=== PATIENT | female | born 1980 | race Caucasian/White ===

== ENCOUNTER → 2016-09-15 | Outpatient (CLI) | payer OTHER ==
--- NOTE | 2016-09-15 12:41 | US ---
EXAMINATION TYPE: US transvaginal DATE OF EXAM: 09/15/2016 10:24 AM COMPARISON: NONE CLINICAL HISTORY: 35-year-old female with abnormal Bleeding N93.9. Patient states abnormal vaginal bl eeding x 3-4 months, patient also states part of right ovary removed many years ago Date of LMP: 09/01/2016 TECHNIQUE: Multiple transvaginal sonographic images of the pelvis are obtained. FINDINGS: Uterus: Anteverted measuring 8.7 x 4.1 x 5.3 cm Endometrial Stripe: There appear to be 2 endometrial horns. No discrete divot of the fundal contour by ultrasound. Endometrial stripe measures up to 9 mm thick. Right Ovary: 1.2 x 1.3 x 0.8 cm, very small with a few small follicles within compatible with histor y of previous partial resection. Left Ovary: 4.5 x 4.4 x 3.5 cm in largest secondary to a 4.1 cm simple cyst. No evident adnexal abnormality or cul-de-sac free fluid. IMPRESSION: 1. 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 If more definitive characterization is warranted, female pelvic MRI can be performed. 2. Diminutive right ovary compatible with history of previous partial resection. 3. Large 4.1 cm simple cyst within the left ovary. Consider follow-up in 6-8 weeks to ensure resoluti on.
== END | disposition home or self-care (01) ==
LOC: RADUSWWP 10:03
PROVIDERS: ATTEND Family Medicine
DX: N83.292 Other ovarian cyst, left side (principal)
CPT/HCPCS: 76830

== ENCOUNTER 2019-05-09 13:45 | Observation (INO) | payer OTHER ==
[2019-05-09] MEDS ORDERED: MORPHINE SULFATE 4 MG/ML SYRINGE IVP STA (14:28)
[2019-05-09] MEDS ORDERED: SODIUM CHLORIDE 0.9% 1,000 ML IV ONE ×2 (14:28→15:55)
--- NOTE | 2019-05-09 14:57 | ED ---
Abdominal Pain HPI - General Source: patient, EMS, RN notes reviewed, old records reviewed Mode of arrival: EMS Limitations: no limitations <Tiarra Morrisonily - Last Filed: 05/09/19 17:08> <Husam Townsend - Last Filed: 05/09/19 18:25> - General Chief Complaint: Abdominal Pain Stated Complaint: Abd pain Time Seen by Provider: 05/09/19 13:55 - History of Present Illness Initial Comments: 38-year-old female presented today for evaluation for transfer for [facility]. Patient was seen there for onset of left-sided abdominal pain and pelvic pain. Patient reports that he did have a positive hCG test there. P fabiano states that she's had previous ectopic pregnancies. She reports that her right ovary was removed when she was 13. She also reports she had an abdominal as well and this was taken care of by Dr. Borden. She states that she has had some vaginal bleeding and was in the past few hours. She is transferred here for an ultrasound. She reports that she's been having significant cramping pain. Her HCG at [facility] was 187. (Laurel Morrison) - Related Data Home Medications Medication Instructions Recorded Confirmed Dextroamphetamine/Amphetamine 30 mg PO BID 01/26/16 05/09/19 [Adderall] Fluticasone Propionate [Flonase 1 spray EA NOSTRIL BID 05/09/19 05/09/19 Allergy Relief] Allergies Allergy/AdvReac Type Severity Reaction Status Date / Time No Known Allergies Allergy Verified 05/09/19 18:13 Review of Systems ROS Other: All systems not noted in ROS Statement are negative. <Laurel Morrison - Last Filed: 05/09/19 17:08> ROS Other: All systems not noted in ROS Statement are negative. <Husam Townsend - Last Filed: 05/09/19 18:25> ROS Statement: Those systems with pertinent positive or pertinent negative responses have been documented in the HPI. Past Medical History Past Medical History: Asthma Additional Past Medical History / Comment(s): palpatations History of Any Multi-Drug Resistant Organisms: MRSA Date of last positivie culture/infection: 2012 MDRO Source:: leg Past Surgical History: Appendectomy Additional Past Surgical History / Comment(s): lumb left breast, ectopic removed - 2002 Past Anesthesia/Blood Transfusion Reactions: No Reported Reaction Past Psychological History: No Psychological Hx Reported Smoking Status: Current every day smoker Past Alcohol Use History: Occasional Past Drug Use History: None Reported - Past Family History Mother Family Medical History: Hypertension Father Family Medical History: Myocardial Infarction ([place]) Additional Family Medical History / Comment(s): [place] in 50's still living <Laurel Morrison - Last Filed: 05/09/19 17:08> General Exam Limitations: no limitations General appearance: alert, in no apparent distress Head exam: Present: atraumatic, normocephalic, normal inspection Eye exam: Present: normal appearance, PERRL, EOMI. Absent: scleral icterus, conjunctival injection, periorbital swelling ENT exam: Present: normal exam, mucous membranes moist Neck exam: Present: normal inspection. Absent: tenderness, meningismus, lymphadenopathy Respiratory exam: Present: normal lung sounds bilaterally. Absent: respiratory distress, wheezes, rales, rhonchi, stridor Cardiovascular Exam: Present: regular rate, normal rhythm, normal heart sounds. Absent: systolic murmur, diastolic murmur, rubs, gallop, clicks GI/Abdominal exam: Present: soft, tenderness (Left lower quadrant tenderness.), normal bowel sounds. Absent: distended, guarding, rebound, rigid External exam: Present: normal external exam Speculum exam: Present: normal speculum exam, vaginal bleeding (minor bleeding, Left adnexal tenderness). Absent: erythema, vaginal discharge, cervical discharge By manual exam: Present: normal by manual exam Extremities exam: Present: normal inspection, full ROM, normal capillary refill. Absent: tenderness, pedal edema, joint swelling, calf tenderness Back exam: Present: normal inspection Neurological exam: Present: alert, oriented X3, CN II-XII intact Psychiatric exam: Present: normal affect, normal mood Skin exam: Present: warm, dry, intact, normal color. Absent: rash <Laurel Morrison - Last Filed: 05/09/19 17:08> - General Exam Comments Initial Comments: 38-year-old female. Alert and oriented 3. Patient appears in moderate distress. (Laurel Morrison) Course <Husam Townsend - Last Filed: 05/09/19 18:25> Vital Signs 12/05/09/19 05/09/19 13:50 14:30 16:15 Temperature 97.7 F Pulse Rate 65 67 64 Respiratory 18 18 18 Rate Blood Pressure 146/110 155/71 162/88 O2 Sat by Pulse 95 98 100 Oximetry 05/09/19 17:00 Temperature Pulse Rate 64 Respiratory 18 Rate Blood Pressure 160/91 O2 Sat by Pulse 100 Oximetry - Reevaluation(s) Reevaluation #1: 05/09/19 17:14 Dr. Arevalo (OBGYN) was paged a couple of times from the ER, but he states that he did not receive any of these pages. Dr. Arevalo was eventually contacted by cell phone, and patient's case and test results were discussed with him. He states that he just left the hospital and he will turn around now and come back to the hospital. He has no further recommendations at this time. (Dr. Chen (OBGYN) was contacted while awaiting a callback from Dr. Arevalo, and she stated that given that the patient identified that her PAYLOADER OPERATOR doctor was Dr. Bolton, I should contact the physician on-call for his group.) 05/09/19 17:28 Dr. Arevalo contacted the ED special distribution clerk, stating that the patient has not seen Dr. Bolton in over 10 years, and he recommended contacting Dr. Chen for care of the patient today. 05/09/19 17:38 Case, H&P, test results, ED management and my discussion with Dr. Arevalo as above were discussed with Dr. Chen. She states that she will be in to the ED t o see the patient shortly. She has no further recommendations at this time. 05/09/19 18:17 Dr. Chen has seen the patient in the ED, and she states that she will be taking the patient to the O.R. for exploratory laparotomy. She has no further recommendations at this time. (Husam Townsend) Medical Decision Making - Lab Data Result diagrams: 05/09/19 14:35 05/09/19 14:35 - Radiology Data Radiology results: report reviewed <Laurel Morrison - Last Filed: 05/09/19 17:08> - Lab Data Result diagrams: 05/09/19 14:35 05/09/19 14:35 <Husam Townsend - Last Filed: 05/09/19 18:25> - Medical Decision Making Patient is a 38-year-old female, presents for his parents today with left pelvic pain. Transfer from [facility]. Patient on pelvic exam did have some discharge and bleeding noted. Left adnexal tenderness. Patient's hCG and her serum was 187 today at [facility]. She is Rh-. Was given RhoGAM injection. Patient was also found to be positive for Trichomonas on swab. Did inform the Patient of this. At this time are pending consult from PAYLOADER OPERATOR. Case Signed out to Dr. Townsend. (Laurel Morrison) Patient was endorsed to me by ED JESS Morrison after initial evaluation and work- up. Patient was seen and examined myself, and all test results were reviewed myself. Case was discussed with PAYLOADER OPERATOR Dr. Chen, and the decision was made to take the patient to the O.R. for exploratory laparotomy out of concern for suspected ectopic given the patient's exam and test results. (Husam Townsend) - Lab Data Lab Results 05/09/19 05/09/19 05/09/19 Range/Units 14:35 14:35 14:35 WBC 6.4 (3.8-10.6) k/uL RBC 3.97 (3.80-5.40) m/uL Hgb 12.8 (11.4-16.0) gm/dL Hct 36.8 (34.0-46.0) % MCV 92.6 (80.0-100.0) fL MCH 32.4 (25.0-35.0) pg MCHC 35.0 (31.0-37.0) g/dL RDW 13.1 (11.5-15.5) % Plt Count 204 (150-450) k/uL Neutrophils % 68 % Lymphocytes % 19 % Monocytes % 8 % Eosinophils % 4 % Basophils % 1 % Neutrophils # 4.3 (1.3-7.7) k/uL Lymphocytes # 1.2 (1.0-4.8) k/uL Monocytes # 0.5 (0-1.0) k/uL Eosinophils # 0.2 (0-0.7) k/uL Basophils # 0.0 (0-0.2) k/uL Sodium 139 (137-145) mmol/L Potassium 3.3 L (3.5-5.1) mmol/L Chloride 112 H (98-107) mmol/L Carbon Dioxide 19 L (22-30) mmol/L Anion Gap 8 mmol/L BUN 9 (7-17) mg/dL Creatinine 0.53 (0.52-1.04) mg/dL Est GFR (CKD-EPI)AfAm >90 (>60 ml/min/1.73 sqM) Est GFR (CKD-EPI)NonAf >90 (>60 ml/min/1.73 sqM) Glucose 78 (74-99) mg/dL Calcium 7.6 L (8.4-10.2) mg/dL Trichomonas Ag (Rapid) (Negative) Blood Type O Negative Blood Type Recheck O Neg Bld Type Recheck Status No Antibody Screen 05/09/19 05/09/19 Range/Units 14:35 16:16 WBC (3.8-10.6) k/uL RBC (3.80-5.40) m/uL Hgb (11.4-16.0) gm/dL Hct (34.0-46.0) % MCV (80.0-100.0) fL MCH (25.0-35.0) pg MCHC (31.0-37.0) g/dL RDW (11.5-15.5) % Plt Count (150-450) k/uL Neutrophils % % Lymphocytes % % Monocytes % % Eosinophils % % Basophils % % Neutrophils # (1.3-7.7) k/uL Lymphocytes # (1.0-4.8) k/uL Monocytes # (0-1.0) k/uL Eosinophils # (0-0.7) k/uL Basophils # (0-0.2) k/uL Sodium (137-145) mmol/L Potassium (3.5-5.1) mmol/L Chloride (98-107) mmol/L Carbon Dioxide (22-30) mmol/L Anion Gap mmol/L BUN (7-17) mg/dL Creatinine (0.52-1.04) mg/dL Est GFR (CKD-EPI)AfAm (>60 ml/min/1.73 sqM) Est GFR (CKD-EPI)NonAf (>60 ml/min/1.73 sqM) Glucose (74-99) mg/dL Calcium (8.4-10.2) mg/dL Trichomonas Ag (Rapid) Positive H (Negative) Blood Type Blood Type Recheck Bld Type Recheck Status Antibody Screen NEGATIVE - Radiology Data No visualized intrauterine . A 1.6 x 1.6 x 1.5 cm area of nodule soft tissue adjacent to the left ovary. Presence of elevated beta hCG in early ectopic remains to be excluded. Correlating with hCG value. No pelvic free fluid. (Laurel Morrison) Disposition <Laurel Morrison - Last Filed: 05/09/19 17:08> Is patient prescribed a controlled substance at d/c from ED?: No Time of Disposition: 18:17 <Husam Townsend - Last Filed: 05/09/19 18:25> Clinical Impression: , Abdominal pain, Vaginal trichomoniasis Narrative: Suspected ectopic (Husam Townsend) Disposition: ADMITTED IP TO THIS HOSP Condition: Stable Referrals: Justin Espinoza DO [Primary Care Provider] - 1-2 days
--- NOTE | 2019-05-09 15:27 | US ---
EXAMINATION TYPE: Ultrasound OB <= 14 week transvaginal DATE OF EXAM: 05/09/2019 3:10 PM COMPARISON: NONE CLINICAL HISTORY: 38-year-old female pelvic pain. Positive test, severe left sided pelvic p ain. EXAM PERFORMED: Transvaginal (TV) and Transabdominal (TA) FINDINGS: EXAM MEASUREMENTS: GESTATIONAL AGE / DATING Physician Established: Not yet established Dates by LMP: two weeks ago per patient Dates by First Scan: No previous, this is first scan Dates by Current Scan for: No IUP identified MATERNAL ANATOMY Uterus: 9.4 x 4.1 x 5.3 cm Right Ovary: 1.4 x 1.2 x 1.2 cm Left Ovary: 2.5 x 2.3 x 2.0 cm. However, see additional findings below. Post CDS / Adnexa: soft tissue density adjacent to left ovary measures 1.6 x 1.5 x 1.6 cm Presence of free fluid: none Presence of corpus luteal cyst: Hypoechoic lesion left ovary measures 1.1 x 1.2 x 1.1 cm could repres ent corpus luteal given peripheral vascularity. Presence of subchorionic bleed: none appreciated GESTATION / SURVEY Sales Order Processor notes: The uterus does not contain any sign of , the endo is not thickened. Date of LMP: two weeks ago per patient Beta HcG (if available): not available at time of exam. Patient states history of ectopic . There is a 1.6 x 1.6 x 1.5 cm nodular soft tissue density adjacent to left ovary. No associated incre ased vascularity here. No pelvic free fluid seen. IMPRESSION: 1. No visualized intrauterine . 2. A 1.6 x 1.6 x 1.5 cm area of nodular appearing soft tissue adjacent to the left ovary. In the pres ence of an elevated beta hCG, an early ectopic remains to be excluded. Correlate with beta hCG value. 3. No pelvic free fluid.
[2019-05-09 15:30] LABS: African American GFR (CKD) >90 (>60 ml/min/1.73 sqM); Anion Gap 8 mmol/L; Blood Urea Nitrogen 9 mg/dL (7-17); Calcium 7.6 mg/dL (8.4-10.2); Carbon Dioxide 19 mmol/L (22-30); Chloride 112 mmol/L (98-107); Glucose 78 mg/dL (74-99); Non-African American GFR(CKD) >90 (>60 ml/min/1.73 sqM); Potassium 3.3 mmol/L (3.5-5.1); Sodium 139 mmol/L (137-145)
[2019-05-09 15:34] LABS: Basophils % (A) 1 %; Eosinophils # (A) 0.2 k/uL (0-0.7); Eosinophils % (A) 4 %; HCT 36.8 % (34.0-46.0); HGB 12.8 gm/dL (11.4-16.0); Lymphocytes # (A) 1.2 k/uL (1.0-4.8); Lymphocytes % (A) 19 %; MCH 32.4 pg (25.0-35.0); MCV 92.6 fL (80.0-100.0); Mean Platelet Volume 8.1; Monocytes # (A) 0.5 k/uL (0-1.0); Monocytes % (A) 8 %; Neutrophils # (A) 4.3 k/uL (1.3-7.7); Neutrophils % (A) 68 %; Platelet Count 204 k/uL (150-450); RBC 3.97 m/uL (3.80-5.40); RDW 13.1 % (11.5-15.5); WBC 6.4 k/uL (3.8-10.6)
[2019-05-09] MEDS ORDERED: Rhogam IMMUNE GLOBULIN 1,500 UNIT/1 ML IM ONE (15:51)
[2019-05-09] MEDS ORDERED: MORPHINE SULFATE 2 MG/ML SYRINGE IVP ONE ×2 (15:55→16:43)
[2019-05-09] MEDS ORDERED: ONDANSETRON 4 MG/2 ML VIAL IVP STA (15:55)
[2019-05-09] MEDS ORDERED: HYDROmorphone 1 MG/ML 1 ML SYRINGE IVP STA (16:47)
[2019-05-09] MEDS ORDERED: NALOXONE 0.4 MG/ML 1 ML VIAL IV PRN (18:19)
[2019-05-09] MEDS ORDERED: SODIUM CHLORIDE 0.9% 1,000 ML IV SCH (18:30)
--- NOTE | 2019-05-09 18:32 | P.HPOB ---
History of Present Illness H&P Date: 05/09/19 Chief Complaint: Severe left lower quadrant pain This is a 38-year-old white female 4 para 10-1 last suture. Approximately 2 weeks ago who presented to [facility] at 10:00 this morning with severe left lower quadrant pain. This is accompanied by nausea, no vomiting. There has been scant vaginal bleeding over the past several days. Patient is known to be Rh- and has received a RhoGAM shot. Ultrasound examination reveals a 1.6 x 1.6 x 1.5 cm left adnexal mass, negative uterine cavity for gestational sac. No free fluid in the abdomen. Beta hCG 187. Patient states that despite pain medication, her pain as 10 out of 10. Past medical history is significant for degenerative disc disease and asthma. Past surgical history is significant for appendectomy along with partial right ovarian cystectomy and possible right partial nephrectomy as a teenager. In addition patient had an exploratory laparotomy for an abdominal at 3 months gestational age in 2011. Past obstetric history normal spontaneous vaginal delivery 2000, 6 lbs. 15 oz. female , uncomplicated. Social history patient is single, her significant other is at the bedside. She has been a tobacco smoker one pack per day for approximately 30 years. She admits to 2 alcoholic beverages weekly, denies drug or marijuana use. She is self-employed in the area of construction. Family history is essentially unremarkable. Current medications Flonase nasal spray as needed. ALLERGIES none known. On exam patient is 5 foot 5 inches, 140 pounds, blood pressure 160/91, pulse 64. She is in visible pain, in the position on the stretcher. Chest is clear in all mcmullen, cardiac exam reveals regular rate and rhythm with no murmur click or rub. Dentition is reasonably healthy and normal, no thyromegaly. Abdomen is softly distended with pain in the upper quadrant, rebound and guarding in the left lower quadrant. Diminished bowel sounds. No CVA tenderness. Extremities reveal no edema, good peripheral pulses. Pelvic examination is deferred to the operating room as the suspicion for ruptured ectopic is noted. Impression: Left ectopic , undesired fertility. Plan: We will proceed with exploratory laparotomy, possible left salpingo-oophorectomy, possible left salpingectomy, and right salpingectomy as well. All risks, benefits, and alternatives are discussed. Patient desires no further childbearing. She understands the risks of surgery to include but not exclusive of bleeding, infection, perforation or damage to surrounding organs including bowel, bladder, blood vessels, or indeed any pelvic organs. She has been nothing by mouth for 24 hours. Likely postoperative course is reviewed as well. All questions answered. Anesthesia and over staff en route. Review of Systems Constitutional: Reports as per HPI Past Medical History Past Medical History: Asthma Additional Past Medical History / Comment(s): palpatations History of Any Multi-Drug Resistant Organisms: MRSA Date of last positivie culture/infection: 2012 MDRO Source:: leg Past Surgical History: Appendectomy Additional Past Surgical History / Comment(s): lumb left breast, ectopic removed - 2002 Past Anesthesia/Blood Transfusion Reactions: No Reported Reaction Past Psychological History: No Psychological Hx Reported Smoking Status: Current every day smoker Past Alcohol Use History: Occasional Past Drug Use History: None Reported - Past Family History Mother Family Medical History: Hypertension Father Family Medical History: Myocardial Infarction ([place]) Additional Family Medical History / Comment(s): [place] in 50's still living Medications and Allergies Home Medications Medication Instructions Recorded Confirmed Type Dextroamphetamine/Amphetamine 30 mg PO BID 01/26/16 05/09/19 History [Adderall] Fluticasone Propionate [Flonase 1 spray EA NOSTRIL BID 05/09/19 05/09/19 History Allergy Relief] Allergies Allergy/AdvReac Type Severity Reaction Status Date / Time No Known Allergies Allergy Verified 05/09/19 18:13 Exam Vital Signs Temp Pulse Resp BP Pulse Ox 05/09/19 17:00 64 18 160/91 100 05/09/19 16:15 64 18 162/88 100 05/09/19 14:30 67 18 155/71 98 05/09/19 13:50 97.7 F 65 18 146/110 95 Intake and Output 05/09/19 05/09/19 05/09/19 06:59 14:59 22:59 Other: Weight 63.503 kg See dictation under HPI please Results Result Diagrams: 05/09/19 14:35 05/09/19 14:35 Abnormal Lab Results - Last 24 Hours (Table) 05/09/19 05/09/19 Range/Units 14:35 16:16 Potassium 3.3 L (3.5-5.1) mmol/L Chloride 112 H (98-107) mmol/L Carbon Dioxide 19 L (22-30) mmol/L Calcium 7.6 L (8.4-10.2) mg/dL Trichomonas Ag (Rapid) Positive H (Negative) Assessment and Plan Assessment: Left ectopic . Undesired fertility, with request for permanent sterilization as well. History of asthma and long-term tobacco smoking. Plan: We will proceed with exploratory laparotomy, left salpingectomy, possible left salpingo-oophorectomy, and right salpingectomy. All risks benefits and alternatives are discussed. All questions answered. Operating room staff and anesthesia en route. Time with Patient: Greater than 30
[2019-05-09] MEDS ORDERED: PROPOFOL 10 MG/ML 20 ML VIAL IV ONE (18:52)
[2019-05-09] MEDS ORDERED: NEOSTIGMINE 1 MG/ML 10 ML VIAL ONE (18:52)
[2019-05-09] MEDS ORDERED: LACTATED RINGERS 1,000 ML IV ONE ×2 (18:52→20:15)
[2019-05-09] MEDS ORDERED: DEXAMETHASONE SOD PHOS (MDV) 100 MG/10 ML VIAL ONE (18:52)
[2019-05-09] MEDS ORDERED: fentaNYL (PF) 50 MCG/ML 2 ML AMP ONE (18:52)
[2019-05-09] MEDS ORDERED: MIDAZOLAM 2 MG/2 ML VIAL ONE (18:52)
[2019-05-09] MEDS ORDERED: ROCURONIUM BROMIDE 10 MG/ML 10 ML VIAL IV ONE (18:52)
[2019-05-09] MEDS ORDERED: ONDANSETRON 4 MG/2 ML VIAL ONE (18:52)
[2019-05-09] MEDS ORDERED: LIDOCAINE 1% INJ 10MG/ML (20 ML MDV) ONE (18:52)
[2019-05-09] MEDS ORDERED: HYDROmorphone (PF) 1 MG/ML ONE (18:52)
[2019-05-09] MEDS ORDERED: SUCCINYLCHOLINE CHLORIDE 100 MG/5 ML SYR IV ONE (18:52)
[2019-05-09] MEDS ORDERED: GLYCOPYRROLATE 0.2 MG/ML 2 ML VIAL ONE (18:52)
[2019-05-09] MEDS ORDERED: KETOROLAC 30 MG/ML 1 ML VIAL ONE (18:52)
[2019-05-09] MEDS ORDERED: ceFAZolin 1,000 MG VIAL IVPB ONE (19:00)
[2019-05-09] MEDS ORDERED: SIMETHICONE 80 MG CHEWABLE PO PRN (19:46)
[2019-05-09] MEDS ORDERED: IBUPROFEN 600 MG TAB PO PRN (19:46)
[2019-05-09] MEDS ORDERED: ONDANSETRON 4 MG/2 ML VIAL IVP PRN (19:46)
[2019-05-09] MEDS ORDERED: METOCLOPRAMIDE 5 MG/ML 2 ML VIAL IVP PRN (19:46)
[2019-05-09] MEDS ORDERED: diphenhydrAMINE 50 MG/ML 1 ML VIAL IVP PRN (19:46)
--- NOTE | 2019-05-09 19:46 | P.OP ---
Date of Procedure: 05/09/19 Preoperative Diagnosis: Suspected ruptured left ectopic , undesired fertility Postoperative Diagnosis: Ruptured left isthmic , hemoperitoneum. Procedure(s) Performed: Exploratory laparotomy, bilateral salpingectomy, copious irrigation of the pelvis Anesthesia: CARROL Surgeon: Mary Chen Engine Monitor #1: Jeremy Arevalo Estimated Blood Loss (ml): 30 IV fluids (ml): 900 Urine output (ml): 250 Pathology: other (Bilateral fallopian tubes) Condition: stable Disposition: PACU Description of Procedure: Patient is brought to the operating suite where general anesthetic is administered without difficulty. She's placed in the dorsal supine position. The appropriate timeout is performed to assure proper patient and procedural identification. Antibiotics are given. Rodriguez placed to direct drainage. The abdomen is prepped and draped in usual sterile fashion. A low transverse incision is made over the top of a previous low transverse incision. This is carried down through the subcutaneous tissue to the fascia. Fascia is opened, extended bilaterally with curved Hodges scissors. Peritoneum is next identified and incised. Upon opening the peritoneal cavity bloody fluid is noted. This is suctioned easily. The left fallopian tube is brought into the incision with a Seminole clamp. There is a ruptured ectopic in the isthmic portion of the tube. A Sharon clamp was used across the entire tube beginning at the base, to include the fimbria, through the entire mesal salpinx, sparing the ovary. Hodges scissors are used to excise the tube and this was sent to pathology for ev aluation. 0 Vicryl sutures used 2 tie, flashed, and retied securely. Hemostasis is excellent. The ovary appears normal. Attention is now drawn to the right ovary and tube. The fimbria appeared so mewhat stunted, and per the patient's wishes the tube is mobilized and clamped across with a Sharon clamp. The ovary is spared. The tube is removed with Hodges scissors, 0 Vicryl sutures used to tie, flashed, and retied for excellent hemostasis. The pelvis is then generously irrigated with warm saline. Peritoneum was allowed to close by secondary intention. Fascia is closed in a running stitch of 0 Vicryl suture. Subcutaneous tissue is clean and dry. It is reapproximated with 3-0 Vicryl in a running manner. 4-0 undyed Vicryl is used in a subcuticular stitch for final skin closure. All sponge needle and enhancement counts are correct at the end of the procedure. Rodriguez is noted to be draining clear urine. Patient is brought back to the recovery room in stable condition with a blood pressure of 111/75, pulse 90. Toradol is given prior to leaving the operative suite.
[2019-05-09] MEDS: MIDAZOLAM 2 MG/2 ML VIAL IVP ONE ×2 (19:56→20:06)
[2019-05-09] MEDS: HYDROmorphone 1 MG/ML 1 ML SYRINGE IVP ONE ×2 (19:56→20:06)
[2019-05-09] MEDS: MORPHINE SULFATE 4 MG/ML SYRINGE IV PRN (21:55)
[2019-05-09 22:35] VITALS: RESP 18
[2019-05-09] MEDS: KETOROLAC 30 MG/ML 1 ML VIAL IVP PRN (23:04)
[2019-05-10] MEDS: MORPHINE SULFATE 4 MG/ML SYRINGE IV PRN ×2 (02:17→08:58)
[2019-05-10] MEDS: KETOROLAC 30 MG/ML 1 ML VIAL IVP PRN ×2 (05:15→11:58)
[2019-05-10 07:17] LABS: ALT 34 U/L (4-34); AST 38 U/L (14-36); African American GFR (CKD) >90 (>60 ml/min/1.73 sqM); Albumin 3.4 g/dL (3.5-5.0); Alkaline Phosphatase 61 U/L (38-126); Anion Gap 13 mmol/L; Blood Urea Nitrogen 5 mg/dL (7-17); Calcium 7.8 mg/dL (8.4-10.2); Carbon Dioxide 18 mmol/L (22-30); Chloride 105 mmol/L (98-107); Glucose 101 mg/dL (74-99); Non-African American GFR(CKD) >90 (>60 ml/min/1.73 sqM); Potassium 3.8 mmol/L (3.5-5.1); Sodium 136 mmol/L (137-145); Total Bilirubin 0.6 mg/dL (0.2-1.3); Total Protein 6.1 g/dL (6.3-8.2)
[2019-05-10 08:21] VITALS: TEMP 98.2
--- NOTE | 2019-05-10 08:42 | P.DS ---
Providers Date of admission: 05/09/19 18:20 Expected date of discharge: 05/10/19 Attending physician: Mary Chen Primary care physician: Justin Hern[facility]dez [facility] Course: This is a 38-year-old white female who presented from [facility] with severe abdominal pain and a positive beta hCG, along with a sonographic mass noted in the left adnexal region. The preliminary diagnosis of ruptured ectopic was given. Hemoglobin stable at 12.8. Vital signs stable. After discussion decision was made to proceed with laparotomy. Patient has had a previous abdominal , as well as a previous right ectopic . Herve vincent see my dictated history and physical for details. She was brought to the operating suite and a mini laparotomy was performed. The was indeed a ruptured ectopic in the left isthmic portion of the tube, left salpingectomy was performed. In addition, there was scarring of the right fallopian tube, status post ectopic on that side in the past. Per patient's wishes and expressed undesired fertility, the right fallopian tube was excised as well. Please see dictated operative note for details. Both ovaries appeared normal and were left in situ per patient's wishes. This morning the patient is doing well. She is ambulating, Rodriguez catheter has been removed, she is voiding. There is no vaginal bleeding noted. Her pain is reasonably well controlled. The incision is clean and dry, intact, Steri-Strips applied. Diet and activity are being advanced. Plan is for likely discharge home later today. I've reviewed with the patientNo intercourse, tampons or douching. No heavy lifting greater than a gallon of milk. No driving for two weeks. Call with any fever, shakes or chills, with any pain not alleviated by over the counter meds, or with any quesions or concerns., No intercourse, alternating Motrin 800 mg with Tylenol 1000 mg per schedule. No heavy lifting, no driving for 2 weeks. Follow-up with me in the office in 2 weeks. Call with any fevers shakes or chills, uncontrolled pain, with any issues or concerns. Patient Condition at Discharge: Good Plan - Discharge Summary Discharge Rx Participant: No New Discharge Prescriptions: No Action Dextroamphetamine/Amphetamine [Adderall] 30 mg PO BID Fluticasone Propionate [Flonase Allergy Relief] 1 spray EA NOSTRIL BID Discharge Medication List Dextroamphetamine/Amphetamine [Adderall] 30 mg PO BID 01/26/16 [History] Fluticasone Propionate [Flonase Allergy Relief] 1 spray EA NOSTRIL BID 05/09/19 [History] Follow up Appointment(s)/Referral(s): Justin Espinoza DO [Primary Care Provider] - 1-2 days () Mary Chen MD [STAFF PHYSICIAN] - 2 Weeks
[2019-05-10 09:21] LABS: Basophils % (A) 0 %; Eosinophils % (A) 0 %; HCT 37.1 % (34.0-46.0); HGB 12.6 gm/dL (11.4-16.0); Lymphocytes # (A) 0.9 k/uL (1.0-4.8); Lymphocytes % (A) 8 %; MCH 32.4 pg (25.0-35.0); MCV 95.2 fL (80.0-100.0); Mean Platelet Volume 8.6; Monocytes # (A) 0.4 k/uL (0-1.0); Monocytes % (A) 3 %; Neutrophils # (A) 10.3 k/uL (1.3-7.7); Neutrophils % (A) 88 %; WBC 11.7 k/uL (3.8-10.6)
[2019-05-10 09:34] LABS: Platelet Count 238 k/uL (150-450)
[2019-05-10 14:45] LABS: C. trachomatis,PCR Negative (Neg,Equiv); Chlamydia trachomatis Source Vagina
[2019-05-10 15:09] LABS: N. gonorrhoeae,PCR Negative (Neg,Equiv); Neisseria Source Vagina
[2019-05-10 15:23] VITALS: BP 118/79; PULSE 69
== END 2019-05-10 15:00 | disposition home or self-care (01) ==
LOC: EC 13:45 → 4FBP 18:20
PROVIDERS: ADMIT Obstetrics & Gynecology; ATTEND Obstetrics & Gynecology
DX: O00.102 Left tubal pregnancy without intrauterine pregnancy (principal); O98.319 Other infections with a predominantly sexual mode of transmission complicating pregnancy, unspecified trimester; A59.01 Trichomonal vulvovaginitis; O99.619 Diseases of the digestive system complicating pregnancy, unspecified trimester; K66.1 Hemoperitoneum; J45.909 Unspecified asthma, uncomplicated; M51.9 Unspecified thoracic, thoracolumbar and lumbosacral intervertebral disc disorder; O99.330 Smoking (tobacco) complicating pregnancy, unspecified trimester; F17.210 Nicotine dependence, cigarettes, uncomplicated; Z30.2 Encounter for sterilization; Z3A.00 Weeks of gestation of pregnancy not specified; Z87.59 Personal history of other complications of pregnancy, childbirth and the puerperium; Z79.899 Other long term (current) drug therapy; Z86.14 Personal history of Methicillin resistant Staphylococcus aureus infection; Z90.49 Acquired absence of other specified parts of digestive tract; Z98.890 Other specified postprocedural states; Z82.49 Family history of ischemic heart disease and other diseases of the circulatory system
CPT/HCPCS: 96376; 96361; 96372; 96374; 96375; 99285; 36415; 86900; 86901; 88305; 80053; 80048; 85025 ×2; 86850; 88302; 87808; 87491; 87591; 87070; 76801; 76817; 59120; 58700; G0378 ×2; J2791; J2250; J2270 ×3; J2710; J2405; J0690; J2001; J3010; J1885 ×2; J1170; J1100; J0330; J2704

== ENCOUNTER 2019-05-11 12:03 | Emergency (ER) | payer OTHER ==
[2019-05-11] MEDS ORDERED: MORPHINE SULFATE 4 MG/ML SYRINGE IV STA (13:19)
[2019-05-11] MEDS ORDERED: SODIUM CHLORIDE 0.9% 1,000 ML IV STA ×2 (13:19)
--- NOTE | 2019-05-11 13:28 | ED ---
Abdominal Pain HPI - General Source: patient Mode of arrival: ambulatory Limitations: no limitations <Alba Villa - Last Filed: 05/11/19 17:08> <Nicolas Stanford - Last Filed: 05/11/19 17:45> - General Chief Complaint: Abdominal Pain Stated Complaint: Bleeding/swelling-post op Time Seen by Provider: 05/11/19 13:16 - History of Present Illness Initial Comments: 38-year-old female presenting today for chief complaint of vaginal bleeding abdominal pain status post emergent open abdominal surgery for ruptured ectopic . Patient states on she did not know she is and had a ruptured ectopic at [facility] where she was transported to [facility] for emergency surgery. She states she had Dr. Chen. She states she had her left and right salpingectomy as patient has had a previous right-sided oophorectomy. Patient states that she was sent home on the she states she had no bleeding at the time minimal pain she states that tonight she knows she woke up with bleeding and had significant abdominal pain described as burning severe pain in the abdomen. Patient states she describes the bleeding is mild to moderate she states she is nauseated and having hot and cold flashes. Patient states she was told that if she had any vaginal bleeding to return to the emergency department. Patient was not prescribed any narcotics upon discharge only instructed to take Tylenol and ibuprofen. Remaining review of systems negative upon arrival patient appears uncomfortable blood pressure elevated. (Alba Villa) - Related Data Home Medications Medication Instructions Recorded Confirmed Dextroamphetamine/Amphetamine 30 mg PO BID 01/26/16 05/09/19 [Adderall] Fluticasone Propionate [Flonase 1 spray EA NOSTRIL BID 05/09/19 05/09/19 Allergy Relief] Previous Rx's Medication Instructions Recorded Ferrous Sulfate [Feosol] 325 mg PO DAILY 7 Days #7 tab 05/11/19 HYDROcodone/APAP 7.5-325MG [[place] 1 tab PO Q4H PRN 3 Days #18 tab 05/11/19 7.5-325] Allergies Allergy/AdvReac Type Severity Reaction Status Date / Time No Known Allergies Allergy Verified 05/11/19 12:16 Review of Systems ROS Other: All systems not noted in ROS Statement are negative. <Alba Villa - Last Filed: 05/11/19 17:08> ROS Other: All systems not noted in ROS Statement are negative. <Nicolas Stanford - Last Filed: 05/11/19 17:45> ROS Statement: Those systems with pertinent positive or pertinent negative responses have been documented in the HPI. Past Medical History Past Medical History: Asthma Additional Past Medical History / Comment(s): palpatations History of Any Multi-Drug Resistant Organisms: MRSA Date of last positivie culture/infection: 2012 MDRO Source:: leg Past Surgical History: Appendectomy Additional Past Surgical History / Comment(s): lumb left breast, ectopic removed - 2002 Past Anesthesia/Blood Transfusion Reactions: No Reported Reaction Past Psychological History: No Psychological Hx Reported Smoking Status: Current every day smoker Past Alcohol Use History: Occasional Past Drug Use History: None Reported - Past Family History Mother Family Medical History: Hypertension Father Family Medical History: No Reported History, Myocardial Infarction ([place]) Additional Family Medical History / Comment(s): [place] in 50's still living <Alba Villa - Last Filed: 05/11/19 17:08> General Exam Limitations: no limitations <Alba Villa - Last Filed: 05/11/19 17:08> - General Exam Comments Initial Comments: General: The patient is awake and alert, appears uncomfortable. Eye: +3 mm pupils are equal, round and reactive to light, extra-ocular movements are intact. No nystagmus. There is normal conjunctiva bilaterally. No signs of icterus. Ears, nose, mouth and throat: There are moist mucous membranes and no oral lesions. Neck: The neck is supple, there is no tenderness or JVD. Cardiovascular: There is a regular rate and rhythm. No murmur, rub or gallop is appreciated. Respiratory: Lungs are clear to auscultation, respirations are non-labored, breath sounds are equal. No wheezes, stridor, rales, or rhonchi. Gastrointestinal: Soft, non-distended, diffusely tender abdomen without masses or organomegaly noted. There is no rebound or guarding present. Incision horizontal on the abdomen wound dehiscence. Serosanguineous dried drainage no active. No surrounding redness. Pelvic exam: reveal os closed, mild-mod amount of dark blood in vault, adnexal tenderness Musculoskeletal: Normal ROM, no tenderness. Strength 5/5. Sensation intact. Radial pulses equal bilaterally 2+. Neurological: A&O x 3. CN II-XII intact grossly, There are no obvious motor or sensory deficits. Coordination appears grossly intact. Speech is normal. Skin: Skin is warm and dry and no rashes or lesions are noted. Psychiatric: Cooperative, appropriate mood & affect, normal judgment. (Alba Villa) Course Vital Signs 05/11/19 05/11/19 05/11/19 12:14 13:36 15:39 Temperature 98.0 F Pulse Rate 82 55 L Respiratory 18 18 Rate Blood Pressure 147/103 137/104 146/115 O2 Sat by Pulse 100 99 Oximetry 05/11/19 05/11/19 16:55 17:13 Temperature 98.3 F Pulse Rate 61 Respiratory 16 Rate Blood Pressure 131/95 O2 Sat by Pulse 99 Oximetry Medical Decision Making - Lab Data Result diagrams: 05/11/19 13:01 05/11/19 13:01 <Alba Villa - Last Filed: 05/11/19 17:08> - Lab Data Result diagrams: 05/11/19 13:01 05/11/19 13:01 <Nicolas Stanford - Last Filed: 05/11/19 17:45> - Medical Decision Making 38-year-old female presenting for postoperative pain. CT of the abdomen revealed a hematoma symptom free fluid in the posterior cul-de-sac patient had recent salpingectomy performed by Dr. Chen she was consulted by my attending provider who reviewed imaging studies his left also laboratory studies and physical appearance as Dr. Stanford abnormalities patient in person. She recommended discharge home with pain medication as patient is not prescribe these upon discharge. She will follow-up with patient in office. He should continue to have pain in the emergency department at 5:00 patient began to decrease the pain she was offered admission however refused to ensure that to try to go home with pain medication. Patient was given very strict return parameters for any increasing or changes in the pain patient verbalized understanding and was discharged appearing well. Dr. stanford agreeable to care plan and discharge at this time. (Alba Villa) 38-year-old female presenting with postoperative abdominal pain after expiratory laparotomy and bilateral salpingectomy. Patient is 2 days postop. She had been discharged in stable condition yesterday she had increasing abdominal pain at home and developed some vaginal bleeding. She has scant blood on pelvic exam. Abdomen mildly distended. No rebound or guarding. CT was performed, shows a hematoma 5 cm x 3 centimeters adjacent to the bladder, there is no active extravasation in this hematoma. There is a mild amount of free fluid in the pelvis as well. Hemoglobin stable at 12.5 from 12.6. Will discuss this case with patient's surgeon Dr. Chen, including CT findings and exam. [place] that patient was stable for discharge with increased pain medication. She was prescribed ferrous sulfate as well. She was initially planned for 2 weeks postoperative evaluation in the office. Plan for outpatient follow-up within next several days to 1 week. Patient is offered observation for continued pain management versus discharge home, she prefers discharge home. Her pain is controlled in the emergency department. (Nicolas Stanford) - Lab Data Lab Results 05/11/19 05/11/19 05/11/19 Range/Units 13:01 13:01 13:05 WBC 9.3 (3.8-10.6) k/uL RBC 4.02 (3.80-5.40) m/uL Hgb 12.5 (11.4-16.0) gm/dL Hct 37.3 (34.0-46.0) % MCV 92.7 (80.0-100.0) fL MCH 31.1 (25.0-35.0) pg MCHC 33.5 (31.0-37.0) g/dL RDW 13.0 (11.5-15.5) % Plt Count (150-450) k/uL Neutrophils % 80 % Lymphocytes % 15 % Monocytes % 4 % Eosinophils % 1 % Basophils % 0 % Neutrophils # 7.4 (1.3-7.7) k/uL Lymphocytes # 1.4 (1.0-4.8) k/uL Monocytes # 0.3 (0-1.0) k/uL Eosinophils # 0.1 (0-0.7) k/uL Basophils # 0.0 (0-0.2) k/uL Manual Slide Review Performed RBC Morphology Normal PT (9.0-12.0) sec INR (<1.2) APTT (22.0-30.0) sec Sodium 138 (137-145) mmol/L Potassium 3.5 (3.5-5.1) mmol/L Chloride 105 (98-107) mmol/L Carbon Dioxide 27 (22-30) mmol/L Anion Gap 6 mmol/L BUN 9 (7-17) mg/dL Creatinine 0.61 (0.52-1.04) mg/dL Est GFR (CKD-EPI)AfAm >90 (>60 ml/min/1.73 sqM) Est GFR (CKD-EPI)NonAf >90 (>60 ml/min/1.73 sqM) Glucose 94 (74-99) mg/dL Calcium 8.8 (8.4-10.2) mg/dL Total Bilirubin 0.7 (0.2-1.3) mg/dL AST 55 H (14-36) U/L ALT 48 H (4-34) U/L Alkaline Phosphatase 74 (38-126) U/L Total Protein 6.6 (6.3-8.2) g/dL Albumin 3.7 (3.5-5.0) g/dL HCG, Quant 46.5 mIU/mL Urine Color Urine Appearance (Clear) Urine pH (5.0-8.0) Ur Specific [place] (1.001-1.035) Urine Protein (Negative) Urine Glucose (UA) (Negative) Urine Ketones (Negative) Urine Blood (Negative) Urine Nitrite (Negative) Urine Bilirubin (Negative) Urine Urobilinogen (<2.0) mg/dL Ur Leukocyte Esterase (Negative) Urine RBC (0-5) /hpf Urine WBC (0-5) /hpf Ur Squamous Epith Cells (0-4) /hpf Urine Mucus (None) /hpf Blood Type O Negative Blood Type Recheck O Neg Bld Type Recheck Status No Antibody Screen POSITIVE Antibody Identification Anti-D Direct Antiglob Test Negative Spec Expiration Date 05/14/2019 - 230405/11/19 05/11/19 Range/Units 13:05 13:45 WBC (3.8-10.6) k/uL RBC (3.80-5.40) m/uL Hgb (11.4-16.0) gm/dL Hct (34.0-46.0) % MCV (80.0-100.0) fL MCH (25.0-35.0) pg MCHC (31.0-37.0) g/dL RDW (11.5-15.5) % Plt Count (150-450) k/uL Neutrophils % % Lymphocytes % % Monocytes % % Eosinophils % % Basophils % % Neutrophils # (1.3-7.7) k/uL Lymphocytes # (1.0-4.8) k/uL Monocytes # (0-1.0) k/uL Eosinophils # (0-0.7) k/uL Basophils # (0-0.2) k/uL Manual Slide Review RBC Morphology PT 9.4 (9.0-12.0) sec INR 0.9 (<1.2) APTT 23.4 (22.0-30.0) sec Sodium (137-145) mmol/L Potassium (3.5-5.1) mmol/L Chloride (98-107) mmol/L Carbon Dioxide (22-30) mmol/L Anion Gap mmol/L BUN (7-17) mg/dL Creatinine (0.52-1.04) mg/dL Est GFR (CKD-EPI)AfAm (>60 ml/min/1.73 sqM) Est GFR (CKD-EPI)NonAf (>60 ml/min/1.73 sqM) Glucose (74-99) mg/dL Calcium (8.4-10.2) mg/dL Total Bilirubin (0.2-1.3) mg/dL AST (14-36) U/L ALT (4-34) U/L Alkaline Phosphatase (38-126) U/L Total Protein (6.3-8.2) g/dL Albumin (3.5-5.0) g/dL HCG, Quant mIU/mL Urine Color Light Yellow Urine Appearance Clear (Clear) Urine pH 7.5 (5.0-8.0) Ur Specific [place] 1.006 (1.001-1.035) Urine Protein Negative (Negative) Urine Glucose (UA) Negative (Negative) Urine Ketones Negative (Negative) Urine Blood Small H (Negative) Urine Nitrite Negative (Negative) Urine Bilirubin Negative (Negative) Urine Urobilinogen <2.0 (<2.0) mg/dL Ur Leukocyte Esterase Small H (Negative) Urine RBC 1 (0-5) /hpf Urine WBC 3 (0-5) /hpf Ur Squamous Epith Cells <1 (0-4) /hpf Urine Mucus Rare H (None) /hpf Blood Type Blood Type Recheck Bld Type Recheck Status Antibody Screen Antibody Identification Direct Antiglob Test Spec Expiration Date Disposition Is patient prescribed a controlled substance at d/c from ED?: Yes When asked, does pt state using other controlled substances?: No If prescribed controlled substance>3 days was MAPS reviewed?: Prescribed <3 Days If opioid is for acute pain is fill amount 7 days or less?: Yes If Rx opioid, was Start Talking consent form obtained?: Yes Time of Disposition: 17:01 <Alba Villa - Last Filed: 05/11/19 17:08> <Nicolas Stanford - Last Filed: 05/11/19 17:45> Clinical Impression: Post-operative pain, Intra-abdominal hematoma Disposition: HOME SELF-CARE Condition: Good Instructions (If sedation given, give patient instructions): Salpingectomy (DC) Prescriptions: Ferrous Sulfate [Feosol] 325 mg PO DAILY 7 Days #7 tab HYDROcodone/APAP 7.5-325MG [[place] 7.5-325] 1 tab PO Q4H PRN 3 Days #18 tab PRN Reason: Pain Referrals: Justin Espinoza DO [Primary Care Provider] - 1-2 days Mary Chen MD [STAFF PHYSICIAN] - 1-2 days
[2019-05-11] MEDS ORDERED: ONDANSETRON 4 MG/2 ML VIAL IVP STA (13:31)
[2019-05-11 13:48] LABS: INR 0.9 (<1.2); Partial Thromboplastin Time 23.4 sec (22.0-30.0); Prothrombin Time 9.4 sec (9.0-12.0)
[2019-05-11 13:49] LABS: ALT 48 U/L (4-34); AST 55 U/L (14-36); African American GFR (CKD) >90 (>60 ml/min/1.73 sqM); Albumin 3.7 g/dL (3.5-5.0); Alkaline Phosphatase 74 U/L (38-126); Anion Gap 6 mmol/L; Blood Urea Nitrogen 9 mg/dL (7-17); Calcium 8.8 mg/dL (8.4-10.2); Carbon Dioxide 27 mmol/L (22-30); Chloride 105 mmol/L (98-107); Glucose 94 mg/dL (74-99); Non-African American GFR(CKD) >90 (>60 ml/min/1.73 sqM); Potassium 3.5 mmol/L (3.5-5.1); Sodium 138 mmol/L (137-145); Total Bilirubin 0.7 mg/dL (0.2-1.3); Total Protein 6.6 g/dL (6.3-8.2)
[2019-05-11 13:53] LABS: Basophils % (A) 0 %; Eosinophils # (A) 0.1 k/uL (0-0.7); Eosinophils % (A) 1 %; HCT 37.3 % (34.0-46.0); HGB 12.5 gm/dL (11.4-16.0); Lymphocytes # (A) 1.4 k/uL (1.0-4.8); Lymphocytes % (A) 15 %; MCH 31.1 pg (25.0-35.0); MCHC 33.5 g/dL (31.0-37.0); MCV 92.7 fL (80.0-100.0); Mean Platelet Volume 9.1; Monocytes # (A) 0.3 k/uL (0-1.0); Monocytes % (A) 4 %; Neutrophils # (A) 7.4 k/uL (1.3-7.7); Neutrophils % (A) 80 %; RBC 4.02 m/uL (3.80-5.40); WBC 9.3 k/uL (3.8-10.6)
[2019-05-11 14:03] LABS: Appearance,Urine Clear (Clear); Bilirubin,Urine Negative (Negative); Blood,Urine Small (Negative); Color,Urine Light Yellow; Glucose,Urine (UA) Negative (Negative); Ketones,Urine Negative (Negative); Leukocyte Esterase,Urine Small (Negative); Mucus,Urine Rare /hpf; Nitrite,Urine Negative (Negative); PH, Urine 7.5 (5.0-8.0); Protein,Urine Negative (Negative); RBC,Urine 1 /hpf (0-5); Specific Gravity,Urine 1.006 (1.001-1.035); Squamous Epithelial Cell,Urine <1 /hpf (0-4); Urobilinogen,Urine <2.0 mg/dL (<2.0); WBC,Urine 3 /hpf (0-5)
[2019-05-11 14:06] LABS: HCG,Quantitative Serum 46.5 mIU/mL
--- NOTE | 2019-05-11 14:31 | CT ---
EXAMINATION TYPE: CT abdomen pelvis w con DATE OF EXAM: 05/11/2019 COMPARISON: None HISTORY: vaginal bleeding, pain, post ectopic tube removal CT DLP: 867.6 mGycm CONTRAST: CT scan of the abdomen and pelvis is performed without Oral Contrast and with IV Contrast, patient in jected with 100 mL of Isovue 300. FINDINGS: LUNG BASES-: No visible nodule. No infiltrate. LIVER/GB: No calcified gallstones. No space occupying hepatic lesion. Biliary tree is of normal ca liber. PANCREAS: No inflammation. No distinct mass. SPLEEN: No splenic enlargement. No lesion seen. ADRENALS: No nodule. No thickening. KIDNEYS/BLADDER: No hydronephrosis. No nephrolithiasis. No distinct renal mass. Urinary bladder g rossly unremarkable. BOWEL: Normal appendix. Distended small bowel felt to reflect ileus. No inflammation. GENITAL ORGANS: Uterus and ovaries are free of mass lesion or abnormal collection. Free fluid seen w ithin the cul-de-sac measuring 3.7 x 2.3 cm. LYMPH NODES: No greater than 1cm abdominal or pelvic lymph nodes are appreciated. AORTA: No significant abnormality. OSSEOUS STRUCTURES: No significant abnormality is seen. OTHER: There is hematoma noted anterior laterally and to the right of the urinary bladder measuring 5.2 x 2.2 cm. Anterior subcutaneous and intramuscular foci of air noted from recent abdominal surgery . IMPRESSION: 1. Postoperative changes of the anterior abdominal wall with multiple foci of air noted. 2. Hematoma noted anterolaterally and to the right of the urinary bladder measuring 5.2 x 2.2 cm. 3. No uterine or ovarian mass lesion identified or collection noted. Free fluid within the cul-de-sac . 4. Small bowel ileus.
[2019-05-11] MEDS ORDERED: MORPHINE SULFATE 4 MG/ML SYRINGE IVP STA (14:54)
[2019-05-11] MEDS ORDERED: HYDROmorphone 0.5 MG/0.5 ML SYRINGE IVP STA (15:46)
[2019-05-11 16:55] VITALS: BP 131/95
[2019-05-11 17:14] VITALS: PULSE 61; RESP 16; TEMP 98.3
== END 2019-05-11 17:19 | disposition home or self-care (01) ==
LOC: EC 12:03
DX: K91.871 Postprocedural hematoma of a digestive system organ or structure following other procedure (principal); G89.18 Other acute postprocedural pain; T81.31XA Disruption of external operation (surgical) wound, not elsewhere classified, initial encounter; J45.909 Unspecified asthma, uncomplicated; F17.200 Nicotine dependence, unspecified, uncomplicated; Z79.51 Long term (current) use of inhaled steroids; Z79.899 Other long term (current) drug therapy; Z86.14 Personal history of Methicillin resistant Staphylococcus aureus infection; Z90.49 Acquired absence of other specified parts of digestive tract; Z90.79 Acquired absence of other genital organ(s); Z53.20 Procedure and treatment not carried out because of patient's decision for unspecified reasons
CPT/HCPCS: 36415; 86900; 86901; 80053; 85025; 85610; 85730; 86850; 86870; 86880; 81001; 84702; 74177; 99284; 96374; 96375 ×2; 96376; 96361 ×4; J2270; J2405; J1170; Q9967

== ENCOUNTER 2023-02-21 11:05 | Emergency (ER) | payer OTHER ==
[2023-02-21] MEDS ORDERED: SODIUM CHLORIDE 0.9% 1,000 ML IV STA (12:04)
[2023-02-21] MEDS ORDERED: KETOROLAC 15 MG/ML 1 ML VIAL IVP STA (12:04)
--- NOTE | 2023-02-21 12:11 | ED ---
ENT HPI - General Chief complaint: Dental/Oral Stated complaint: Dental Pain Time Seen by Provider: 02/21/23 11:33 Source: patient Mode of arrival: ambulatory Limitations: no limitations - History of Present Illness Initial comments: A 42-year-old female with no significant past medical history presented to the ED with a chief complaint of chest pain. Patient notes that she is due for dental extraction of left lower molar. States that she saw her dentist a few days ago due to cavity and was prescribed amoxicillin 500 mg 3 times a day on 02/17/23. Patient reports over the past 2-3 days has developed left lower chest pain that is worse on deep breath, movement, and touching. Reports due to this states that she feels somewhat short of breath. So notes over the past few days has felt fatigued, subjective fevers and chills. Due to this she called her dentist who advised her to present to the ED for further evaluation. Denies abdominal pain. Denies urinary symptoms. No changes in bowel or bladder habits. She reports chronic cough due to history of smoking. No other complaints. - Related Data Home Medications Medication Instructions Recorded Confirmed Dextroamphetamine/Amphetamine 30 mg PO BID 01/26/16 05/09/19 [Adderall] Fluticasone Propionate [Flonase 1 spray EA NOSTRIL BID 05/09/19 05/09/19 Allergy Relief] Previous Rx's Medication Instructions Recorded Ferrous Sulfate [Feosol] 325 mg PO DAILY 7 Days #7 tab 05/11/19 HYDROcodone/APAP 7.5-325MG [[place] 1 tab PO Q4H PRN 3 Days #18 tab 05/11/19 7.5-325] Allergies Allergy/AdvReac Type Severity Reaction Status Date / Time No Known Allergies Allergy Verified 02/21/23 11:32 Review of Systems ROS Statement: Those systems with pertinent positive or pertinent negative responses have been documented in the HPI. ROS Other: All systems not noted in ROS Statement are negative. Past Medical History Past Medical History: Asthma Additional Past Medical History / Comment(s): palpatations History of Any Multi-Drug Resistant Organisms: MRSA Date of last positivie culture/infection: 2012 MDRO Source:: leg Past Surgical History: Appendectomy Additional Past Surgical History / Comment(s): lumb left breast, ectopic removed - 2002 Past Anesthesia/Blood Transfusion Reactions: No Reported Reaction Past Psychological History: No Psychological Hx Reported Smoking Status: Current every day smoker Past Alcohol Use History: None Reported Past Drug Use History: None Reported - Past Family History Mother Family Medical History: Hypertension Father Family Medical History: No Reported History, Myocardial Infarction ([place]) Additional Family Medical History / Comment(s): [place] in 50's still living General Exam Limitations: no limitations General appearance: alert, in no apparent distress Eye exam: Present: normal appearance ENT exam: Present: mucous membranes moist Neck exam: Present: normal inspection Respiratory exam: Present: normal lung sounds bilaterally Cardiovascular Exam: Present: regular rate, normal rhythm, other (No murmurs rubs or gallops.) GI/Abdominal exam: Present: soft Extremities exam: Present: other (No Janeway lesions or Osler nodes.) Neurological exam: Present: alert, oriented X3 Skin exam: Present: warm, dry Course Vital Signs 02/21/23 11:27 Temperature 98.2 F Pulse Rate 91 Respiratory 18 Rate Blood Pressure 95/61 O2 Sat by Pulse 100 Oximetry Medical Decision Making - Medical Decision Making Was pt. sent in by a medical professional or institution (, PA, MEDICAL ASSISTANT, urgent care, hospital, or retirement...) When possible be specific @ -No Did you speak to anyone other than the patient for history (EMS, parent, family, police, friend...)? What history was obtained from this source @ -No Did you review nursing and triage notes (agree or disagree)? Why? @ -I reviewed and agree with nursing and triage notes Were old charts reviewed (outside hosp., previous admission, EMS record, old EKG, old radiological studies, urgent care reports/EKG's, retirement records)? Report findings @ -No old charts were reviewed Differential Diagnosis (chest pain, altered mental status, abdominal pain women, abdominal pain men, vaginal bleeding, weakness, fever, dyspnea, syncope, headache, dizziness, GI bleed, back pain, seizure, CVA, palpatations, mental health, musculoskeletal)? @ -Differential Chest Pain: Stable Angina, Unstable Angina, STEMI, NSTEMI Aortic Dissection, Pneumothorax, Musculoskeletal, Esophageal Spasm GERD, Cholecystitis, Pancreatitis, Zoster, this is not meant to be an all-inclusive list. EKG interpreted by me (3pts min.). @ -As above X-rays interpreted by me (1pt min.). @ -Chest x-ray interpreted by me showed no acute process. CT interpreted by me (1pt min.). @ -None done U/S interpreted by me (1pt. min.). @ -None done What testing was considered but not performed or refused? (CT, X-rays, U/S, labs)? Why? @ -None What meds were considered but not given or refused? Why? @ -None Did you discuss the management of the patient with other professionals (prof godoy i.e. , PA, MEDICAL ASSISTANT, lab, RT, psych nurse, social sciences professor, neurourologist, teacher, accounts officer, case manager specialist)? Give summary @ -No Was smoking cessation discussed for >3mins.? @ -No Was critical care preformed (if so, how long)? @ -No Were there social determinants of health that impacted care today? How? (Homelessness, low income, unemployed, alcoholism, drug addiction, transportat ion, low edu. Level, literacy, decrease access to med. care, fci, rehab)? @ -No Was there de-escalation of care discussed even if they declined (Discuss DNR or withdrawal of care, Hospice)? DNR status @ -No What co-morbidities impacted this encounter? (DM, HTN, Smoking, COPD, CAD, Cancer, CVA, ARF, Chemo, Hep., AIDS, mental health diagnosis, sleep apnea, morbid obesity)? @ -None Was patient admitted / discharged? Hospital course, mention meds given and route, prescriptions, significant lab abnormalities, going to OR and other pertinent info. @ -Discharge 42-year-old female presented to the ED with concerns of chest pain and shortness of breath. Laboratory studies including CBC, chemistry panel, d-dimer, troponin, UA unremarkable. Pain is reproducible on exam with reproductive left lower chest wall tenderness to palpation. Patient had significant improvement of symptoms with Toradol here in the ED. Patient discharged home in stable condition. Discussed return precautions with patient and family who verbalizes agreement. Undiagnosed new problem with uncertain prognosis? @ -No Drug Therapy requiring intensive monitoring for toxicity (Heparin, Nitro, Insulin, Cardizem)? @ -No Were any procedures done? @ -No Diagnosis/symptom? @ -Chest pain Acute, or Chronic, or Acute on Chronic? @ -Acute Uncomplicated (without systemic symptoms) or Complicated (systemic symptoms)? @ -Uncomplicated Side effects of treatment? @ -No Exacerbation, Progression, or Severe Exacerbation? @ -No Poses a threat to life or bodily function? How? (Chest pain, [place], AR, pneumonia, PE, COPD, DKA, ARF, appy, cholecystitis, CVA, Diverticulitis, Homicidal, Suicidal, threat to staff... and all critical care pts) @ -No - Lab Data Result diagrams: 02/21/23 12:02/21/23 12: Lab Results 02/21/23 02/21/23 02/21/23 Range/Units 12: 12:07 05: WBC 8.3 (3.8-10.6) k/uL RBC 5.05 (3.80-5.40) m/uL Hgb 15.2 (11.4-16.0) gm/dL Hct 45.5 (34.0-46.0) % MCV 90.2 (80.0-100.0) fL MCH 30.0 (25.0-35.0) pg MCHC 33.3 (31.0-37.0) g/dL RDW 12.5 (11.5-15.5) % Plt Count 235 (150-450) k/uL MPV 9.1 Neutrophils % 75 % Lymphocytes % 16 % Monocytes % 5 % Eosinophils % 2 % Basophils % 1 % Neutrophils # 6.3 (1.3-7.7) k/uL Lymphocytes # 1.4 (1.0-4.8) k/uL Monocytes # 0.4 (0-1.0) k/uL Eosinophils # 0.1 (0-0.7) k/uL Basophils # 0.1 (0-0.2) k/uL D-Dimer 0.48 (<0.60) mg/L FEU Sodium (137-145) mmol/L Potassium (3.5-5.1) mmol/L Chloride (98-107) mmol/L Carbon Dioxide (22-30) mmol/L Anion Gap mmol/L BUN (7-17) mg/dL Creatinine (0.52-1.04) mg/dL Est GFR (CKD-EPI)AfAm (>60 ml/min/1.73 sqM) Est GFR (CKD-EPI)NonAf (>60 ml/min/1.73 sqM) Glucose (74-99) mg/dL Calcium (8.4-10.2) mg/dL Total Bilirubin (0.2-1.3) mg/dL AST (14-36) U/L ALT (4-34) U/L Alkaline Phosphatase (38-126) U/L Troponin I (0.000-0.034) ng/mL Total Protein (6.3-8.2) g/dL Albumin (3.5-5.0) g/dL Urine Color Yellow Urine Appearance Clear (Clear) Urine pH 5.5 (5.0-8.0) Ur Specific [place] 1.022 (1.001-1.035) Urine Protein Negative (Negative) Urine Glucose (UA) Negative (Negative) Urine Ketones Negative (Negative) Urine Blood Trace H (Negative) Urine Nitrite Negative (Negative) Urine Bilirubin Negative (Negative) Urine Urobilinogen 2.0 (<2.0) mg/dL Ur Leukocyte Esterase Negative (Negative) Urine RBC 1 (0-5) /hpf Urine WBC <1 (0-5) /hpf Ur Squamous Epith Cells 2 (0-4) /hpf Urine Mucus Few H (None) /hpf Influenza Type A (PCR) (Not Detectd) Influenza Type B (PCR) (Not Detectd) RSV (PCR) (Not Detectd) SARS-CoV-2 (PCR) (Not Detectd) 02/21/23 02/21/23 02/21/23 Range/Units 12:23 12:23 12:23 WBC (3.8-10.6) k/uL RBC (3.80-5.40) m/uL Hgb (11.4-16.0) gm/dL Hct (34.0-46.0) % MCV (80.0-100.0) fL MCH (25.0-35.0) pg MCHC (31.0-37.0) g/dL RDW (11.5-15.5) % Plt Count (150-450) k/uL MPV Neutrophils % % Lymphocytes % % Monocytes % % Eosinophils % % Basophils % % Neutrophils # (1.3-7.7) k/uL Lymphocytes # (1.0-4.8) k/uL Monocytes # (0-1.0) k/uL Eosinophils # (0-0.7) k/uL Basophils # (0-0.2) k/uL D-Dimer (<0.60) mg/L FEU Sodium 138 (137-145) mmol/L Potassium 4.3 (3.5-5.1) mmol/L Chloride 102 (98-107) mmol/L Carbon Dioxide 26 (22-30) mmol/L Anion Gap 10 mmol/L BUN 15 (7-17) mg/dL Creatinine 0.61 (0.52-1.04) mg/dL Est GFR (CKD-EPI)AfAm >90 (>60 ml/min/1.73 sqM) Est GFR (CKD-EPI)NonAf >90 (>60 ml/min/1.73 sqM) Glucose 93 (74-99) mg/dL Calcium 10.0 (8.4-10.2) mg/dL Total Bilirubin 1.1 (0.2-1.3) mg/dL AST 27 (14-36) U/L ALT 20 (4-34) U/L Alkaline Phosphatase 53 (38-126) U/L Troponin I <0.012 (0.000-0.034) ng/mL Total Protein 7.7 (6.3-8.2) g/dL Albumin 4.4 (3.5-5.0) g/dL Urine Color Urine Appearance (Clear) Urine pH (5.0-8.0) Ur Specific [place] (1.001-1.035) Urine Protein (Negative) Urine Glucose (UA) (Negative) Urine Ketones (Negative) Urine Blood (Negative) Urine Nitrite (Negative) Urine Bilirubin (Negative) Urine Urobilinogen (<2.0) mg/dL Ur Leukocyte Esterase (Negative) Urine RBC (0-5) /hpf Urine WBC (0-5) /hpf Ur Squamous Epith Cells (0-4) /hpf Urine Mucus (None) /hpf Influenza Type A (PCR) Not Detected (Not Detectd) Influenza Type B (PCR) Not Detected (Not Detectd) RSV (PCR) Not Detected (Not Detectd) SARS-CoV-2 (PCR) Not Detected (Not Detectd) - EKG Data EKG Comments: EKG showed a sinus rhythm with occasional immature complexes at 69 beats per minutes. AK 137, QRS 80, QT/QTC 388/407. Disposition Clinical Impression: Chest pain Disposition: HOME SELF-CARE Condition: Good Instructions (If sedation given, give patient instructions): Costochondritis (ED) Additional Instructions: Please return to the Emergency Department if symptoms worsen or any other concerns. Use Motrin/Tylenol as needed for pain. Please follow-up with your PCP. Is patient prescribed a controlled substance at d/c from ED?: No Referrals: Justin Espinoza DO [Primary Care Provider] - 1-2 days Time of Disposition: 14:17
[2023-02-21 13:05] LABS: Basophils # (A) 0.1 k/uL (0-0.2); Basophils % (A) 1 %; Eosinophils # (A) 0.1 k/uL (0-0.7); Eosinophils % (A) 2 %; HCT 45.5 % (34.0-46.0); HGB 15.2 gm/dL (11.4-16.0); Lymphocytes # (A) 1.4 k/uL (1.0-4.8); Lymphocytes % (A) 16 %; MCHC 33.3 g/dL (31.0-37.0); MCV 90.2 fL (80.0-100.0); Mean Platelet Volume 9.1; Monocytes # (A) 0.4 k/uL (0-1.0); Monocytes % (A) 5 %; Neutrophils # (A) 6.3 k/uL (1.3-7.7); Neutrophils % (A) 75 %; Platelet Count 235 k/uL (150-450); RBC 5.05 m/uL (3.80-5.40); RDW 12.5 % (11.5-15.5); WBC 8.3 k/uL (3.8-10.6)
[2023-02-21 13:09] LABS: Appearance,Urine Clear (Clear); Bilirubin,Urine Negative (Negative); Blood,Urine Trace (Negative); Color,Urine Yellow; Glucose,Urine (UA) Negative (Negative); Ketones,Urine Negative (Negative); Leukocyte Esterase,Urine Negative (Negative); Mucus,Urine Few /hpf; Nitrite,Urine Negative (Negative); PH, Urine 5.5 (5.0-8.0); Protein,Urine Negative (Negative); RBC,Urine 1 /hpf (0-5); Specific Gravity,Urine 1.022 (1.001-1.035); Squamous Epithelial Cell,Urine 2 /hpf (0-4); WBC,Urine <1 /hpf (0-5)
--- NOTE | 2023-02-21 13:31 | XR ---
EXAMINATION TYPE: XR chest 2V DATE OF EXAM: 02/21/2023 COMPARISON: 01/26/2016 TECHNIQUE: PA and lateral views submitted. HISTORY: Chest pain FINDINGS: The lungs are clear and there is no pneumothorax, pleural effusion, or focal pneumonia. Heart size normal and no overt failure. Osseous structures demonstrate hypertrophic and degenerative changes of the spine. Hyperinflation related to COPD. Scoliotic spine. IMPRESSION: 1. No acute process.
[2023-02-21 13:37] LABS: ALT 20 U/L (4-34); AST 27 U/L (14-36); African American GFR (CKD) >90 (>60 ml/min/1.73 sqM); Albumin 4.4 g/dL (3.5-5.0); Alkaline Phosphatase 53 U/L (38-126); Anion Gap 10 mmol/L; Blood Urea Nitrogen 15 mg/dL (7-17); Carbon Dioxide 26 mmol/L (22-30); Chloride 102 mmol/L (98-107); Glucose 93 mg/dL (74-99); Non-African American GFR(CKD) >90 (>60 ml/min/1.73 sqM); Potassium 4.3 mmol/L (3.5-5.1); Sodium 138 mmol/L (137-145); Total Bilirubin 1.1 mg/dL (0.2-1.3); Total Protein 7.7 g/dL (6.3-8.2)
[2023-02-21 15:34] VITALS: BP 97/64; PULSE 70; RESP 16; TEMP 97.9
== END 2023-02-21 15:44 | disposition home or self-care (01) ==
LOC: EC 11:05
DX: R07.89 Other chest pain (principal); J45.909 Unspecified asthma, uncomplicated; F17.200 Nicotine dependence, unspecified, uncomplicated; Z20.822 Contact with and (suspected) exposure to COVID-19; Z79.51 Long term (current) use of inhaled steroids
CPT/HCPCS: 36415; 93005; 85379; 80053; 84484; 85025; 81001; 87636; 71046; 99283; 96374; 96361 ×3; J1885

== ENCOUNTER 2023-03-14 18:38 | Emergency (ER) | payer SELFPAY ==
[2023-03-14 19:04] VITALS: RESP 18
[2023-03-14 20:32] LABS: Basophils # (A) 0.1 k/uL (0-0.2); Basophils % (A) 1 %; Eosinophils # (A) 0.2 k/uL (0-0.7); Eosinophils % (A) 2 %; HCT 43.6 % (34.0-46.0); HGB 14.4 gm/dL (11.4-16.0); Lymphocytes # (A) 2.1 k/uL (1.0-4.8); Lymphocytes % (A) 25 %; MCH 29.3 pg (25.0-35.0); MCHC 32.9 g/dL (31.0-37.0); MCV 89.1 fL (80.0-100.0); Mean Platelet Volume 8.1; Monocytes # (A) 0.4 k/uL (0-1.0); Monocytes % (A) 4 %; Neutrophils # (A) 5.8 k/uL (1.3-7.7); Neutrophils % (A) 67 %; Platelet Count 243 k/uL (150-450); RDW 12.5 % (11.5-15.5); WBC 8.6 k/uL (3.8-10.6)
--- NOTE | 2023-03-14 20:37 | ED ---
Chest Pain HPI - General Chief Complaint: Chest Pain Stated Complaint: Chest Pain, Sob Time Seen by Provider: 03/14/23 20:36 Source: patient, RN notes reviewed Mode of arrival: ambulatory Limitations: no limitations - History of Present Illness Initial Comments: Patient is a 42 year old female who presents to the emergency department for chest pain. - Related Data Home Medications Medication Instructions Recorded Confirmed Dextroamphetamine/Amphetamine 30 mg PO BID 01/26/16 05/09/19 [Adderall] Fluticasone Propionate [Flonase 1 spray EA NOSTRIL BID 05/09/19 05/09/19 Allergy Relief] Previous Rx's Medication Instructions Recorded Ferrous Sulfate [Feosol] 325 mg PO DAILY 7 Days #7 tab 05/11/19 HYDROcodone/APAP 7.5-325MG [[place] 1 tab PO Q4H PRN 3 Days #18 tab 05/11/19 7.5-325] Allergies Allergy/AdvReac Type Severity Reaction Status Date / Time No Known Allergies Allergy Verified 03/14/23 18:57 Review of Systems ROS Statement: Those systems with pertinent positive or pertinent negative responses have been documented in the HPI. ROS Other: All systems not noted in ROS Statement are negative. Past Medical History Past Medical History: Asthma Additional Past Medical History / Comment(s): palpatations History of Any Multi-Drug Resistant Organisms: MRSA Date of last positivie culture/infection: 2012 MDRO Source:: leg Past Surgical History: Appendectomy Additional Past Surgical History / Comment(s): lumb left breast, ectopic removed - 2002 Past Anesthesia/Blood Transfusion Reactions: No Reported Reaction Past Psychological History: No Psychological Hx Reported Smoking Status: Current every day smoker Past Alcohol Use History: None Reported Past Drug Use History: None Reported - Past Family History Mother Family Medical History: Hypertension Father Family Medical History: No Reported History, Myocardial Infarction ([place]) Additional Family Medical History / Comment(s): [place] in 50's still living General Exam - General Exam Comments Initial Comments: Visual Physical Exam Vital signs reviewed General: Well-appearing, nontoxic, no acute distress. Head: Normocephalic, atraumatic Eyes: PERRLA, EOMI ENT: Airway patent Chest: Nonlabored breathing Skin: No visual rash, normal skin tone Neuro: Alert and oriented 3 Musculoskeletal: No gross abnormalities Limitations: no limitations Course Vital Signs 03/14/23 03/14/23 18:56 22:29 Temperature 98.2 F 97.8 F Pulse Rate 100 93 Respiratory 18 18 Rate Blood Pressure 132/69 142/64 O2 Sat by Pulse 99 98 Oximetry Chest Pain MDM - MDM I performed the QuickNote portion of this chart - Jackie Trotter PA-C Disposition Clinical Impression: Chest pain Disposition: LEFT AGAINST MEDICAL ADVICE Instructions (If sedation given, give patient instructions): Chest Pain (ED) Referrals: Justin Espinoza, [Primary Care Provider] - 1-2 days
[2023-03-14 20:45] LABS: INR 0.9 (<1.2); Partial Thromboplastin Time 24.8 sec (22.0-30.0); Prothrombin Time 9.7 sec (10.0-12.5)
[2023-03-14 21:00] LABS: ALT 15 U/L (4-34); AST 20 U/L (14-36); African American GFR (CKD) >90 (>60 ml/min/1.73 sqM); Albumin 4.5 g/dL (3.5-5.0); Alkaline Phosphatase 61 U/L (38-126); Anion Gap 8 mmol/L; Blood Urea Nitrogen 10 mg/dL (7-17); Calcium 10.3 mg/dL (8.4-10.2); Carbon Dioxide 25 mmol/L (22-30); Chloride 104 mmol/L (98-107); Glucose 101 mg/dL (74-99); Magnesium 2.1 mg/dL (1.6-2.3); Non-African American GFR(CKD) >90 (>60 ml/min/1.73 sqM); Potassium 4.7 mmol/L (3.5-5.1); Sodium 137 mmol/L (137-145); Total Bilirubin 0.3 mg/dL (0.2-1.3); Total Protein 7.6 g/dL (6.3-8.2)
--- NOTE | 2023-03-14 21:14 | XR ---
EXAMINATION TYPE: XR chest 2V DATE OF EXAM: 03/14/2023 8:53 PM CLINICAL INDICATION:Female, 42 years old with history of Chest Pain; COMPARISON: Chest radiographs from 06/24/2022 TECHNIQUE: XR chest 2V Frontal and lateral views of the chest. FINDINGS: Lungs/Pleura: There is flattening of the diaphragm with increased lucency of the lungs. No evidence o f pneumothorax, pleural effusion or focal consolidation. Pulmonary vascularity: Unremarkable. Heart/mediastinum: Cardiomediastinal silhouette is unremarkable. Musculoskeletal: No acute osseous pathology. IMPRESSION: 1. No acute cardiopulmonary disease process. 2. COPD changes.
[2023-03-14 22:31] VITALS: BP 142/64; PULSE 93; TEMP 97.8
== END 2023-03-14 23:37 | disposition left against medical advice (07) ==
LOC: EC 18:38
DX: R07.9 Chest pain, unspecified (principal); J44.89 Other specified chronic obstructive pulmonary disease; F32.A Depression, unspecified; Z79.51 Long term (current) use of inhaled steroids; Z53.29 Procedure and treatment not carried out because of patient's decision for other reasons
CPT/HCPCS: 36415; 71046; 80053; 83735; 84484; 85025; 85610; 85730; 93005; 99285

== ENCOUNTER 2023-03-17 13:19 | Emergency (ER) | payer OTHER ==
[2023-03-17 16:12] LABS: Amphetamine Screen,Urine Detected (NotDetected); Barbiturate Screen,Urine Not Detected (NotDetected); Benzodiazepines Screen,Urine Not Detected (NotDetected); Cocaine Screen,Urine Not Detected (NotDetected); Methadone Screen, Urine Not Detected (NotDetected); Opiate Screen,Urine Not Detected (NotDetected); Oxycodone Screen, Urine Not Detected (NotDetected); Phencyclidine Screen,Urine Not Detected (NotDetected); Tricyclic Antidepressant,Urine Not Detected (NotDetected); Urn Cannabinoid Scrn Not Detected (NotDetected)
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
[2023-03-17 19:17] LABS: Appearance,Urine Clear (Clear); Bilirubin,Urine Negative (Negative); Blood,Urine Negative (Negative); Color,Urine Yellow; Glucose,Urine (UA) Negative (Negative); Ketones,Urine Negative (Negative); Leukocyte Esterase,Urine Negative (Negative); Nitrite,Urine Negative (Negative); PH, Urine 6.5 (5.0-8.0); Protein,Urine Negative (Negative); Specific Gravity,Urine 1.016 (1.001-1.035); Urobilinogen,Urine <2.0 mg/dL (<2.0)
[2023-03-17 20:00] LABS: HCT 40.2 % (34.0-46.0); HGB 13.8 gm/dL (11.4-16.0); MCH 30.5 pg (25.0-35.0); MCHC 34.3 g/dL (31.0-37.0); MCV 88.9 fL (80.0-100.0); Mean Platelet Volume 8.9; Platelet Count 214 k/uL (150-450); RBC 4.52 m/uL (3.80-5.40); RDW 12.6 % (11.5-15.5); WBC 10.5 k/uL (3.8-10.6)
[2023-03-17 20:07] LABS: ALT 13 U/L (4-34); AST 18 U/L (14-36); African American GFR (CKD) >90 (>60 ml/min/1.73 sqM); Albumin 4.3 g/dL (3.5-5.0); Alkaline Phosphatase 65 U/L (38-126); Anion Gap 8 mmol/L; Blood Urea Nitrogen 10 mg/dL (7-17); Calcium 9.5 mg/dL (8.4-10.2); Carbon Dioxide 25 mmol/L (22-30); Chloride 106 mmol/L (98-107); Glucose 85 mg/dL (74-99); Non-African American GFR(CKD) >90 (>60 ml/min/1.73 sqM); Potassium 4.1 mmol/L (3.5-5.1); Sodium 139 mmol/L (137-145); Total Bilirubin 0.3 mg/dL (0.2-1.3); Total Protein 7.1 g/dL (6.3-8.2)
[2023-03-17 22:48] VITALS: RESP 18
[2023-03-18 02:16] VITALS: BP 132/88; PULSE 79; TEMP 98.2
== END 2023-03-18 02:07 ==
LOC: EC 13:19
DX: F29 Unspecified psychosis not due to a substance or known physiological condition (principal); F22 Delusional disorders; J45.909 Unspecified asthma, uncomplicated; F17.200 Nicotine dependence, unspecified, uncomplicated; Z20.822 Contact with and (suspected) exposure to COVID-19
CPT/HCPCS: 36415; 80053; 80306; 81003; 81025; 82075; 85027; 87635; 99285